=== PATIENT | female | born 1955 | race Caucasian/White ===

== ENCOUNTER 2016-07-07 06:31 | Inpatient (IN) | payer OTHER ==
[~2016-07-07] VITALS: Ht 162.6 cm; Wt 94.5 kg
[~2016-07-07 06:31] MED LIST: CYCLOBENZAPRINE10 MG PO; DAILY MULTIPLE1 EAC1 PO; MOBIC15 MG PO; PROTONIX20 MG PO
[2016-07-09] MEDS ORDERED: ASPIRIN81 MG PO (09:00)
[2016-07-09] MEDS ORDERED: NORCO 325-5 MG1 TAB PO ×3 (09:02→09:15)
[2016-07-09] MEDS ORDERED: SENNA-TIME S1 TAB PO (09:17)
== END 2016-07-09 15:10 | disposition short-term general hospital (02) | DRG 470 ==
LOC: SURG 06:31 → IP 06:31 → SURG 12:35 → IP 07-09 15:10
PROVIDERS: ADMIT Family Medicine
PROC: 0SRC0J9 Replacement of Right Knee Joint with Synthetic Substitute, Cemented, Open Approach (ICD-10-PCS; principal; 2016-07-07)
DX: M17.11 Unilateral primary osteoarthritis, right knee (principal); K21.9 Gastro-esophageal reflux disease without esophagitis; E66.9 Obesity, unspecified; F41.8 Other specified anxiety disorders; Z68.35 Body mass index [BMI] 35.0-35.9, adult; Z79.899 Other long term (current) drug therapy
CPT/HCPCS: A9150; C1776; C9290; J0690; J1100; J1885; J2250; J2270; J2405; J3010

== ENCOUNTER 2016-07-12 06:38 | Observation (INO) | payer OTHER ==
[~2016-07-12] VITALS: Ht 162.6 cm; Wt 94.3 kg
[~2016-07-12 06:38] MED LIST changes: +ASPIRIN81 MG PO; +NORCO 325-5 MG1 TAB PO; +SENNA-TIME S1 TAB PO
[2016-07-12] MEDS ORDERED: OXYCODONE HCL5 MG PO (09:55)
[2016-07-13] MEDS ORDERED: TOPROL XL25 MG PO (10:32)
[2016-07-13] MEDS ORDERED: COLACE100 M1 PO (10:35)
== END 2016-07-13 11:00 | disposition short-term general hospital (02) ==
LOC: ER 06:38 → OBS 09:10 → ER 09:10 → IP 09:10 → ER 09:35 → IP 07-13 11:00
PROVIDERS: ADMIT Family Medicine
DX: R07.9 Chest pain, unspecified (principal); R61 Generalized hyperhidrosis; F41.8 Other specified anxiety disorders; M19.90 Unspecified osteoarthritis, unspecified site; M54.5 Low back pain; E66.9 Obesity, unspecified; Z79.82 Long term (current) use of aspirin; Z79.891 Long term (current) use of opiate analgesic; Z79.899 Other long term (current) drug therapy; Z90.49 Acquired absence of other specified parts of digestive tract; Z90.710 Acquired absence of both cervix and uterus; Z96.651 Presence of right artificial knee joint; Z98.890 Other specified postprocedural states
CPT/HCPCS: A9150; G0378; J1650; J2405; Q9967

== ENCOUNTER → 2016-07-21 | Outpatient (CLI) | payer OTHER ==
[~2016-07-21] MED LIST changes: +COLACE100 M1 PO; +OXYCODONE HCL5 MG PO; +TOPROL XL25 MG PO
== END | disposition short-term general hospital (02) ==
LOC: CLORTH 08:07
DX: Z47.1 Aftercare following joint replacement surgery (principal); Z96.651 Presence of right artificial knee joint

== ENCOUNTER → 2016-09-01 | Outpatient (CLI) | payer OTHER | END | disposition short-term general hospital (02) | LOC: CLORTH 07:44 | DX: Z47.1 Aftercare following joint replacement surgery (principal); Z96.651 Presence of right artificial knee joint ==